=== PATIENT | female | born 1975 | race Caucasian/White ===

== ENCOUNTER 2017-09-30 16:08 | Emergency (ER) | payer BC ==
[~2017-09-30] VITALS: Ht 162.6 cm; Wt 54.0 kg
[~2017-09-30 16:08] MED LIST: ASPCH81; LRT5 PO; METH4PAK4 PO
[2017-09-30 16:18] VITALS: Ht 162.6 cm; Wt 54.0 kg
[2017-09-30] MEDS ORDERED: ACETAMINOPHEN 500 MG TAB PO STA (16:38)
[2017-09-30] MEDS ORDERED: KETOROLAC TROMETHAMINE 30 MG/ML VIAL IV STA (16:38)
[2017-09-30] MEDS ORDERED: SODIUM CHLORIDE 0.9% 1000ML 1,000 ML IV ONE (16:45)
--- NOTE | 2017-09-30 16:50 | EMERGENCY ROOM VISIT NOTE ---
History First contact with patient: 16:25 Chief Complaint: FLU LIKE SX Stated Complaint: FLU History of Present Illness The patient is a 41 year old female who presents to the Emergency Room with complaints of fever, severe headache, nausea and sensitivity to light that started suddenly this morning. The patient has a history of Myalgic encephalomyelitis/chronic fatigue syndrome. She said that this feels like 1 of her flares. These are usually brought on from an infection. She denies any other infectious symptoms such as cough, sore throat, sinus pressure, dysuria, hematuria, vomiting or diarrhea. She did not take her temperature. She is not taking anything for the pain. The patient was first seen at urgent care. She was sent here for further evaluation. The patient notes that she has had numerous CT scans and MRIs. All have come out normal. Review of Systems 10 system review performed and negative unless noted in HPI or below Past Medical/Surgical History Myalgic encephalomyelitis/chronic fatigue syndrome Gastroparesis Social History Smoking Status: Never Smoker Marital Status: Current/Historical Medications Scheduled Cholecalciferol (Vitamin D3), 1,000 UNITS PO QAM Multivitamin (Multivitamin), 1 TAB PO DAILY Ondasetron Odt (Zofran Odt), 4 MG SL Q6H Thyroid ([place] Thyroid), 60 MG PO QAM Tramadol Hcl (Ultram), 50 MG PO Q4H [Adrenal Supp.], 1 DOSE PO DIRECTED [Mitochondrial Supp.], 1 DOSE PO DIRECTED Physical Exam Vital Signs Date Time Temp Pulse Resp B/P (MAP) Pulse Ox O2 Delivery O2 Flow Rate FiO2 09/30/17 23:04 36.9 71 18 112/74 99 09/30/17 22:02 65 18 93/54 97 Room Air 09/30/17 20:32 37.3 67 18 112/65 97 Room Air 09/30/17 19:01 37.5 77 18 108/66 100 Room Air 09/30/17 17:42 78 24 102/56 98 Room Air 09/30/17 16:34 86 09/30/17 16:18 37.9 94 18 115/58 94 Room Air Physical Exam VITALS: Vitals are noted on the nurse's note and reviewed by myself. Vital signs stable. GENERAL: 41-year-old female, mildly acutely ill and weak in appearance, SKIN: The skin was without rashes, erythema, edema, or bruising. HEAD: Normocephalic atraumatic. EYES: Pupils equal round and reactive to light and accommodation. Conjunctivae without injection, sclerae without icterus. Extraocular movements intact. MOUTH: Mucous membranes moist. Tonsils are not enlarged. Pharynx without erythema or exudate. Uvula midline. Airway patent. Tongue does not deviate. NECK: Supple without nuchal rigidity. No lymphadenopathy. No JVD. HEART: Regular rate and rhythm without murmurs gallops or rubs. LUNGS: Clear to auscultation bilaterally without wheezes, rales or rhonchi. No accessory muscle use. ABDOMEN: Positive bowel sounds x 4.Soft, nontender, without organomegaly. No guarding or rebound tenderness. MUSCULOSKELETAL: No muscle atrophy, erythema, or edema noted. Overall weakness noted. No focal weakness noted. NEURO: Patient was alert and oriented to person place and time. Normal sensation to touch. No focal neurological deficits. Medical Decision & Procedures ER Provider Diagnostic Interpretation: CXR IMPRESSION: No acute process. The above report was generated using voice recognition software. It may contain grammatical, syntax or spelling errors. Electronically signed by: Mal Rivera M.D. 09/30/2017 5:14 PM Dictated Date/Time: 09/30/2017 5:13 PM The status of this report is Signed. Draft = Not yet reviewed or approved by Radiologist. Signed = Reviewed and approved by Radiologist. <AttendingPhy></AttendingPhy> <FamilyPhy>Elizabeth Juarez C.R.N.P.</FamilyPhy> <PrimaryPhy>Elizabeth Juarez C.R.N.P.</PrimaryPhy> <UnitNumber>[id number]</ UnitNumber> <VisitNumber Laboratory Results 09/30/17 17:00 Red Blood Count 4.18, Mean Corpuscular Volume 91.4, Mean Corpuscular Hemoglobin 31.1, Mean Corpuscular Hemoglobin Concent 34.0, Mean Platelet Volume 11.0, Neutrophils (%) (Auto) 82.0, Lymphocytes (%) (Auto) 10.6, Monocytes (%) (Auto) 6.4, Eosinophils (%) (Auto) 0.6, Basophils (%) (Auto) 0.3, Neutrophils # (Auto) 5.75, Lymphocytes # (Auto) 0.74, Monocytes # (Auto) 0.45, Eosinophils # (Auto) 0.04, Basophils # (Auto) 0.02 09/30/17 17:00 Test 09/30/17 17:00 09/30/17 17:42 09/30/17 20:44 White Blood Count 7.01 K/uL (4.8-10.8) Red Blood Count 4.18 M/uL (4.2-5.4) Hemoglobin 13.0 g/dL (12.0-16.0) Hematocrit 38.2 % (37-47) Mean Corpuscular Volume 91.4 fL (80-100) Mean Corpuscular Hemoglobin 31.1 pg (25-34) Mean Corpuscular Hemoglobin Concent 34.0 g/dl (32-36) Platelet Count 142 K/uL (130-400) Mean Platelet Volume 11.0 fL (7.4-10.4) Neutrophils (%) (Auto) 82.0 % Lymphocytes (%) (Auto) 10.6 % Monocytes (%) (Auto) 6.4 % Eosinophils (%) (Auto) 0.6 % Basophils (%) (Auto) 0.3 % Neutrophils # (Auto) 5.75 K/uL (1.4-6.5) Lymphocytes # (Auto) 0.74 K/uL (1.2-3.4) Monocytes # (Auto) 0.45 K/uL (0.11-0.59) Eosinophils # (Auto) 0.04 K/uL (0-0.5) Basophils # (Auto) 0.02 K/uL (0-0.2) RDW Standard Deviation 39.6 fL (36.4-46.3) RDW Coefficient of Variation 11.9 % (11.5-14.5) Immature Granulocyte % (Auto) 0.1 % Immature Granulocyte # (Auto) 0.01 K/uL (0.00-0.02) Anion Gap 11.0 mmol/L (3-11) Est Creatinine Clear Calc Drug Dose 82.8 ml/min Estimated GFR () 111.9 Estimated GFR (Non- 96.6 BUN/Creatinine Ratio 15.0 (10-20) Calcium Level 8.4 mg/dl (8.5-10.1) Total Bilirubin 0.6 mg/dl (0.2-1) Aspartate Amino Transf (AST/SGOT) 9 U/L (15-37) Alanine Aminotransferase (ALT/SGPT) 16 U/L (12-78) Alkaline Phosphatase 44 U/L (45-117) Total Protein 6.9 gm/dl (6.4-8.2) Albumin 3.6 gm/dl (3.4-5.0) Globulin 3.3 gm/dl (2.5-4.0) Albumin/Globulin Ratio 1.1 (0.9-2) Human Chorionic Gonadotropin, Qual NEG (NEG) Lyme Disease IgG Antibody NEG (NEG) Lyme Disease IgM Antibody NEG (NEG) Urine Color YELLOW Urine Appearance CLEAR (CLEAR) Urine pH 8.0 (4.5-7.5) Urine Specific [place] 1.008 (1.000-1.030) Urine Protein NEG (NEG) Urine Glucose (UA) NEG (NEG) Urine Ketones 2+ (NEG) Urine Occult Blood NEG (NEG) Urine Nitrite NEG (NEG) Urine Bilirubin NEG (NEG) Urine Urobilinogen NEG (NEG) Urine Leukocyte Esterase SMALL (NEG) Urine WBC (Auto) 1-5 /hpf (0-5) Urine RBC (Auto) 0-4 /hpf (0-4) Urine Hyaline Casts (Auto) 0 /lpf (0-5) Urine Epithelial Cells (Auto) 10-20 /lpf (0-5) Urine Bacteria (Auto) NEG (NEG) Influenza Type A (RT-PCR) Neg for Influ A (NEG) Influenza Type A Antigen Neg for Influ A (NEG) Influenza Type B Antigen Neg for Influ B (NEG) Influenza Type B (RT-PCR) Neg for Influ B (NEG) CSF Color COLORLESS CSF Appearance CLEAR CSF WBC 0 /uL (0-5) CSF RBC 0 /uL (0) CSF Xanthrochromic NO XANTHOCHROMIA CSF Cell Count Tube # 4 CSF Chemistry Tube # 2 CSF Glucose 57 mg/dl (40-70) CSF Total Protein 36.6 mg/dl (15.0-45.0) Medications Administered Medications (Trade) Dose Ordered Sig/Camila Route Start Time Stop Time Status Last Admin Dose Admin Sodium Chloride 1,000 ml @ 999 mls/hr Q1H1M ONCE IV 3/18/18 16:45 09/30/17 17:45 DC 09/30/17 17:37 999 MLS/HR Acetaminophen (Tylenol Tab) 1,000 mg NOW STAT PO 09/30/17 16:38 09/30/17 16:41 DC 09/30/17 17:37 1,000 MG Ketorolac Tromethamine (Toradol Inj) 30 mg NOW STAT IV 09/30/17 16:38 09/30/17 16:41 DC 09/30/17 17:37 30 MG Lidocaine HCl (Xylocaine 1% Inj (Local)) 20 ml STK-MED ONCE .ROUTE 09/30/17 19:34 09/30/17 19:35 DC 09/30/17 20:27 20 ML Fentanyl Citrate (Fentanyl Inj) 25 mcg NOW STAT IV 09/30/17 20:49 09/30/17 20:50 DC 09/30/17 20:55 25 MCG Ondansetron HCl (ZOFRAN ODT 4MG Home Pack) 1 homepack UD ONCE PO 09/30/17 22:45 09/30/17 22:46 DC 09/30/17 22:54 1 HOMEPACK Tramadol HCl (Ultram Home Pack) 1 homepack UD ONCE PO 09/30/17 22:45 09/30/17 22:46 DC 09/30/17 22:54 1 HOMEPACK ED Course Patient was seen and examined Vital signs including blood pressure were reviewed medications list was verified with patient Labs were obtained, and a saline lock was established The patient was medicated with Toradol 30 mg IV and Tylenol 1 g p.o. She was hydrated with 1 L of normal saline. The patient was reassessed by myself and my supervising physician. We discussed her workup. She voiced understanding, and she was in agreement with a lumbar puncture. This was performed by my supervising physician. Please see his note for details. The patient was reassessed and resting comfortably. We discussed her results and disposition options. She was comfortable being discharged home. I reviewed discharge instructions the patient. They voiced understanding and had no further questions. Medical Decision Differential diagnosis: Influenza, pneumonia, meningitis, EC/CFS flare, MS, myasthenia gravis, atypical migraine This patient is a 41-year-old female that presents to the emergency department with headache, fever and severe fatigue. She has a history of chronic fatigue syndrome. This typically flares up when she has an infection. On exam, she was significantly fatigued. She looked uncomfortable. Her workup reveals no leukocytosis. Chest x-ray is negative. Influenza is also negative. My supervising physician performed a lumbar puncture to rule out meningitis. No signs of meningitis on the CSF. This is likely a viral GI illness causing a flare of her EC/CFS. Disposition options were discussed at length with the patient and the patient's . They were comfortable being discharged home with close follow-up. I believe this is reasonable. She will follow-up with her primary care physician this week, and agrees to return with worsening symptoms. This chart was completed in part utilizing [employer] Speech Voice Recognition software. Attempts were made to minimize the grammatical errors, random word insertions, pronoun errors and incomplete sentences. Any formal questions or concerns about the content, text or information contained within the body of this dictation should be directly addressed to the provider for clarification. Medication Reconcilliation Current Medication List: was personally reviewed by me Blood Pressure Screening Patient's blood pressure: Normal blood pressure Impression Primary Impression: Viral syndrome Additional Impression: Weakness Departure Information Dispostion Home / Self-Care Condition FAIR Prescriptions Tramadol Hcl (ULTRAM) 50 Mg Tab 50 MG PO Q4H for Pain, #20 TAB PRN PAIN Prov: Amara Major PA-C 09/30/17 Ondasetron Odt (ZOFRAN ODT) 4 Mg Tab 4 MG SL Q6H for Nausea, #20 TAB Prov: Amara Major PA-C 09/30/17 Referrals Elizabeth Juarez, C.R.N.P. (PCP) Patient Instructions [facility] Additional Instructions You have been evaluated in the emergency department for headache, body aches, fever and weakness. This is likely a viral syndrome exacerbating your chronic illness Please try to increase your fluid intake over the next several days Please take Zofran 1 tab under the tongue every 6 hours as needed for nausea Please take tramadol 1 tab every 4 hours as needed for pain Follow-up with your primary care physician as soon as possible. Please call tomorrow morning for a follow-up appointment. Do not hesitate to return to the emergency department with a new, worsening or concerning symptoms; especially, chest pain, difficulty breathing, localized abdominal pain, persistent vomiting or worsening headache It was a pleasure participating in your care this evening Problem Qualifiers
--- NOTE | 2017-09-30 17:15 | DIAGNOSTIC IMAGING REPORT ---
CHEST ONE VIEW PORTABLE HISTORY: 41 years-old Female fever acute fever COMPARISON: CTA of the chest 05/24/2010 TECHNIQUE: Portable AP view of the chest FINDINGS: Cardiac mediastinal and hilar silhouettes are within normal limits. No pneumothorax, pleural effusion, focal airspace consolidation or overt pulmonary edema. The bones of the chest appear grossly intact. Sigmoidal scoliosis of the thoracolumbar spine redemonstrated. IMPRESSION: No acute process. The above report was generated using voice recognition software. It may contain grammatical, syntax or spelling errors. Electronically signed by: Mal Rivera M.D. 09/30/2017 5:14 PM Dictated Date/Time: 09/30/2017 5:13 PM
[2017-09-30 17:25] LABS: BASO % 0.3 %; BASO ABS # 0.02 K/uL (0-0.2); EOS % 0.6 %; EOS ABS # 0.04 K/uL (0-0.5); HEMATOCRIT 38.2 % (37-47); IG# 0.01 K/uL (0.00-0.02); LYMPH % 10.6 %; LYMPH ABS # 0.74 K/uL (1.2-3.4); MEAN CELL VOLUME 91.4 fL (80-100); MEAN CORPUSCULAR HEMOGLOBIN 31.1 pg (25-34); MONO % 6.4 %; MONO ABS # 0.45 K/uL (0.11-0.59); NEUT ABS # 5.75 K/uL (1.4-6.5); PLATELET COUNT 142 K/uL (130-400); RED CELL DISTRIBUTION WIDTH CV 11.9 % (11.5-14.5); RED CELL DISTRIBUTION WIDTH SD 39.6 fL (36.4-46.3); WHITE BLOOD COUNT 7.01 K/uL (4.8-10.8)
[2017-09-30 17:48] LABS: ALBUMIN 3.6 gm/dl (3.4-5.0); CALCIUM 8.4 mg/dl (8.5-10.1); CREATININE 0.77 mg/dl (0.60-1.20); POTASSIUM 3.4 mmol/L (3.5-5.1)
[2017-09-30 17:50] LABS: TOTAL PROTEIN 6.9 gm/dl (6.4-8.2)
[2017-09-30] MEDS ORDERED: [UNRECOGNIZED DRUG - OTHER] PO (17:51)
[2017-09-30] MEDS ORDERED: ADRENAL PO (17:51)
[2017-09-30] MEDS ORDERED: THY/30 PO (17:51)
[2017-09-30] MEDS ORDERED: MULT-506 PO (17:51)
[2017-09-30] MEDS ORDERED: CHOL1CAP57 PO (17:51)
[2017-09-30 18:30] LABS: INFLUENZA B ANTIGEN Neg for Influ B (NEG)
--- NOTE | 2017-09-30 19:15 | EMERGENCY ROOM VISIT NOTE ---
ED Visit Note First contact with patient: 16:25 The patient was seen and examined with Amara Major PA-C. I agree with the history, physical and findings. Please see the note for disposition and details. The patient had acute onset of symptoms on top of her chronic condition. She had a fever. Given the headache, fever, neck stiffness and flulike symptoms a sizable workup was performed. Her urinalysis and chest x- ray were unremarkable. CBC chemistry panel, and Lyme testing was negative. Rapid flu and PCR flu testing was negative. Because of the symptoms and concerns for possible meningitis the patient underwent lumbar puncture. This went quite easily and she was found to have unremarkable fluid. There is no elevation of her protein. No white cells or red cells noted. The patient was treated symptomatically. She has a nonfocal examination. She is answering questions appropriately. I discussed conservative management as there does not appear to be any indication for her to be admitted to the hospital. The patient and her feel comfortable with the plan. I did advise her that close follow-up will be necessary and I would like for her to see her primary clinic tomorrow. She feels comfortable with this plan and agrees to do so. If she worsens in any way she will be back. Seems to be most consistent with an influenza-like illness exacerbating her chronic fatigue and myalgias. 2038: I performed a Lumbar Puncture. Refer to the procedure note below for details. Lumbar Puncture Indication: Headache and fever Verbal consent was obtained after the risks and benefits were explained, including but not limited to headache, bleeding/clotting, scarring, infection, pain, and bone/joint/nerve damage. At this time, the risks of the procedure are less than the risks of NOT performing the procedure. A time out was taken and the correct patient and site identified. The patient was placed in the left lateral decubitus position and the back was prepped with betadine and draped in the standard fashion. The L3 intervertebral space was identified, anesthetized locally with 1% lidocaine without epinephrine, and the spinal needle was inserted through the skin with the bevel parallel to the dural fibers. The needle was carefully advanced into the lumbar cistern and 4 tubes of clear CSF was obtained. The stylet was replaced and the needle was removed. A bandaid was placed and the patient was placed in the supine position. The patient tolerated the procedure well and there were no complications.
[2017-09-30] MEDS ORDERED: LIDOCAINE HCL 1% 20 ML VIAL ONE (19:34)
[2017-09-30] MEDS ORDERED: FENTANYL CITRATE INJ 50 MCG/1 ML 2 ML VIAL IV STA (20:49)
[2017-09-30 21:16] LABS: CSF GLUCOSE 57 mg/dl (40-70); CSF TOTAL PROTEIN 36.6 mg/dl (15.0-45.0)
[2017-09-30 21:18] LABS: INFLUENZA A PCR Neg for Influ A (NEG); INFLUENZA B PCR Neg for Influ B (NEG)
[2017-09-30] MEDS ORDERED: ONDA4TAB10 SL (22:41)
[2017-09-30] MEDS ORDERED: TRAM-453 PO (22:41)
[2017-09-30] MEDS ORDERED: TRAMADOL HCL 50 MG HOME PACK PO ONE (22:45)
[2017-09-30] MEDS ORDERED: ONDANSETRON HOME PACK 4MG OD TAB PO ONE (22:45)
[2017-09-30 23:04] VITALS: BP 112/74; PULSE 71; TEMP 36.9; O2SAT 99
== END 2017-09-30 23:04 | disposition home or self-care (01) ==
LOC: C.EDB 16:10 → C.EDC 23:04
DX: B34.9 Viral infection, unspecified (principal); R53.1 Weakness; R53.82 Chronic fatigue, unspecified; K31.84 Gastroparesis; Z79.899 Other long term (current) drug therapy

== ENCOUNTER → 2017-10-09 | Outpatient (CLI) | payer BC ==
[~2017-10-09] MED LIST changes: +ADRENAL PO; -ASPCH81; +CHOL1CAP57 PO; -LRT5 PO; -METH4PAK4 PO; +MULT-506 PO; +ONDA4TAB10 SL; +THY/30 PO; +TRAM-453 PO; +[UNRECOGNIZED DRUG - OTHER] PO
== END | disposition home or self-care (01) ==
LOC: C.LAB1850 12:28
PROVIDERS: ATTEND Nurse Practitioner
DX: R53.81 Other malaise (principal); G89.29 Other chronic pain

== ENCOUNTER → 2017-10-17 | Outpatient (CLI) | payer BC ==
[~2017-10-17] MED LIST changes: +GADAVIST IV PRN; -TRAM-453 PO
--- NOTE | 2017-10-17 19:37 | DIAGNOSTIC IMAGING REPORT ---
MRI OF THE CERVICAL SPINE COMBO CLINICAL HISTORY: Neck pain. Difficulty ambulating. Generalized weakness. Nausea. COMPARISON STUDY: No priors. TECHNIQUE: MRI of the cervical spine is performed utilizing various T1 and T2-weighted sequences in the axial and sagittal planes. Contrast-enhanced sequences are acquired following the IV administration of 5 cc of Gadavist. FINDINGS: Cervical spine: Vertebral body height and alignment are maintained throughout the cervical spine. There is straightening of the cervical lordosis. Normal marrow signal intensity is preserved throughout the visualized bony structures. The atlantodental articulation appears maintained. The spinous processes are intact. No destructive bony lesion is identified. Intervertebral discs: Normal in height and signal intensity. Spinal cord: The cervical spinal cord is normal in morphology and signal intensity. No abnormal enhancement is identified on the postcontrast sequences. C2-C3: Unremarkable. C3-C4: Unremarkable. C4-C5: Unremarkable. C5-C6: A small posterior disc osteophyte complex minimally effaces the ventral subarachnoid space. The central canal and neural foramina are patent. C6-C7: Unremarkable. C7-T1: Unremarkable. Soft tissues: The prevertebral and paraspinous soft tissues are normal as visualized. An 8 mm nodule is noted in the right thyroid lobe. Additional left-sided nodules are identified. Brain parenchyma: The partially imaged brain parenchyma at the skull base is normal in appearance. IMPRESSION: 1. There is no disc herniation, central canal stenosis, or neural foraminal stenosis seen throughout the cervical spine. 2. The cervical spinal cord is normal in morphology and signal intensity. 3. There is an 8 mm nodule identified in the right lobe of the thyroid gland. Follow-up with a nonemergent thyroid ultrasound is recommended for further assessment. Dictated: 10/17/2017 6:58 PM Transcribed: 10/17/2017 7:37 PM [email or web address] Electronically signed by: Rory Reynolds M.D. 10/17/2017 7:43 PM Dictated Date/Time: 10/17/2017 6:58 PM
== END | disposition home or self-care (01) ==
LOC: C.MRI 17:36
PROVIDERS: ATTEND Nurse Practitioner Family
DX: R53.1 Weakness (principal); M79.1 Myalgia; H53.149 Visual discomfort, unspecified; E04.1 Nontoxic single thyroid nodule

== ENCOUNTER 2022-08-24 10:59 | Inpatient (IN) ==
[2022-08-24] MEDS ORDERED: dilTIAZem HCl 5 MG/ML 5 ML VIAL IV STA (11:38)
[2022-08-24] MEDS ORDERED: STAT IV Infusion **Titration per Protocol STA (11:38)
[2022-08-24] MEDS ORDERED: dilTIAZem HCL 125 MG in DEXTROSE 5% 100 ML IV SCH (11:45)
--- NOTE | 2022-08-24 11:47 | Emergency Department Note ---
Impression & Plan Atrial flutter with rapid ventricular response, Chest pain, Shortness of breath ED Provider Note NAME: VAN BO AGE: 46 SEX: F : 1975 ARRIVES VIA: Walk-In INFORMANT: Patient ED PROVIDER(S): Josep Carr DO CHIEF COMPLAINT: chest pain, shortness of breath and palpitations HPI: Patient is a 46-year-old female who presents to the ER for chest pain, palpitations, and shortness of breath. This all started around 10 AM. She has a history of A-fib. Denies any belly pain, nausea, vomiting, or diarrhea. She feels lightheaded and dizzy. No dysuria, urgency, or frequency. No other exacerbating or remitting factors. She has had this at least 5 times before in the past. She is following with [facility] from a neurological standpoint due to autonomic dysfunction. She is following with [facility] for her atrial flutter/A-fib. PAST MEDICAL HISTORY:See Below PAST SURGICAL HISTORY:See Below FAMILY HISTORY:See Below SOCIAL HISTORY:See Below HOME MEDICATIONS:See Below ALLERGIES:See Below VITALS:See Below PHYSICAL EXAMINATION: GENERAL: Sitting up in bed, alert, well appearing, well nourished, no distress, non-toxic EYE EXAM: normal conjunctiva. PERRL and EOM's grossly intact. OROPHARYNX: no exudate, no erythema, lips, buccal mucosa, and tongue normal and mucous membranes are moist NECK: supple, no nuchal rigidity, no adenopathy, non-tender LUNGS: Clear to auscultation. Normal chest wall mechanics HEART: Tachycardic, S1 normal and S2 normal ABDOMEN: abdomen soft, non-tender, normo-active bowel sounds, no masses, no rebound or guarding. BACK: Back is symmetrical on inspection and there is no deformity, no midline tenderness, no CVA tenderness. SKIN: no rashes and no bruising UPPER EXTREMITIES: upper extremities are grossly normal. LOWER EXTREMITIES: No pitting edema. NEURO EXAM: Normal sensorium, cranial nerves II-XII grossly intact, normal speech, no gross weakness of arms, no gross weakness of legs. MEDICAL DECISION MAKING: Patient is a 46-year-old female who presents ER for chest pain shortness of breath and palpitations. He does have a history of A-fib. IV established blood was obtained. Labs show no significant leukocytosis or anemia. BMP with LFTs bilirubin and TSH was unremarkable. Troponin was negative. COVID was negative. EKG consistent with atrial flutter with RVR with ST depressions. IV was established blood work was obtained. External records were reviewed. She was placed on Cardizem drip and given a Cardizem bolus. Heart rate trended down to the 70s. She remained in atrial flutter. Symptoms did improve. She was updated bedside. Discussed with the hospitalist admitted for further work-up to Dr. Ilya Feng. She remained on a Cardizem drip while in the ER. Triage Nursing notes reviewed. Limited review of prior medical records performed Vital Signs: reviewed and remarkable for tachy Differential diagnosis: Cardiac ischemia, aortic dissection, pulmonary embolism, pneumothorax, pneumonia, pericarditis, myocarditis, esophageal rupture, GERD, cholecystitis, pancreatitis, musculoskeletal, as well as other pathologies. ER treatment provided: See below Diagnostics interpreted by me include EKG and cardiac monitoring as listed below: -Cardiac Monitoring: An order was placed for continuous cardiac monitoring. The monitor shows a rate of 130 with atrial flutter with RVR. -ECG: Sinus rhythm rate of 138 Normal axis No PVCs ST depressions in the inferior leads as well as lateral leads QTc 460 -Laboratory studies:Interpreted by me as stated above in MDM and shown below. Imaging studies: Xrays: As interpreted by me: Portable AP upright 2 views of the chest show no focal trait or pneumothorax CTs show: none Consultation(s): Discussed with Dr. Ilya Feng in regards to presentation work-up and further management Procedures:none Critical Care: I have personally spent 35 minutes of critical care time in the direct management of this patient. This includes bedside care, interpretation of diagnostic studies, and testing, discussion with consultants, patient, and family members, and other required patient management activities. This 35 minutes is in excess of all separately billable procedures. Past Med/Surg History Medical History (Updated 08/24/22 @ 16:46 by Josep Carr DO) Atrial flutter Cervical facet syndrome Cervicalgia Chronic fatigue syndrome Chronic pain Fibroadenoma Fibromyalgia Hypothyroidism Tachycardia Surgical History H/O breast biopsy History of dental surgery Family History Grandmother (Maternal) Breast cancer Grandmother (Paternal) Breast cancer Other No pertinent family history in first degree relatives Denies family history of Ovarian cancer Colorectal cancer Uterine cancer Social History Smoking Status: Never smoker Hx Alcohol Use: Yes (wine a few times a year) Hx Substance Use: Yes (medical marijuana for sleep) Preferred Language: Tuvaluan Communication Ability: Effective Visual Impairment: No Limitations Avionics Test Technician Required: No Beliefs That Will Affect Care: Gnosticism marital status: Current Living Situation: Spouse and Family current occupational status: disabled Feels Safe at Home: Yes Assistive Devices: None Allergies Allergies Allergy/AdvReac Type Severity Reaction Status Date / Time Tetanus Vaccines and Toxoid Allergy Severe Migraine Unverified 07/31/19 13:02 and mouth numbness grass pollen Allergy Verified 12/14/20 12:57 grass pollen-perennial rye, Allergy Verified 12/14/20 12:57 standar codeine AdvReac Intermediate GI UPSET Verified 10/04/18 09:31 Home Meds Home Medications Medication Instructions Recorded Confirmed cholecalciferol (vitamin D3) 25 1,000 unit PO QAM 04/05/18 08/24/22 mcg (1,000 unit) tablet (Vitamin D3) ibuprofen 200 mg tablet 200 mg PO QID PRN Pain 04/05/18 08/24/22 multivitamin 1 tab PO QAM 04/05/18 08/24/22 metoprolol succinate 25 mg 12.5 mg PO QPM 07/31/19 08/24/22 tablet,extended release 24 hr (Toprol XL) fludrocortisone 0.1 mg tablet 0.1 mg PO DAILY 12/14/20 08/24/22 midodrine 2.5 mg tablet 2.5 mg PO BID 12/14/20 08/24/22 duloxetine 30 mg capsule,delayed 60 mg PO HS 03/18/22 08/24/22 release eszopiclone 3 mg tablet 3 mg PO HS PRN Sleep 03/18/22 08/24/22 levothyroxine 75 mcg tablet 75 mcg PO QAM 03/18/22 08/24/22 liothyronine 5 mcg tablet 5 mcg PO QAM 03/18/22 08/24/22 rizatriptan 5 mg disintegrating 5 mg PO DIRECTED PRN Migraine 03/18/22 08/24/22 tablet Headache Previous Rx's Medication Instructions Recorded lidocaine HCl 2 % mucosal solution 10 ml PO Q6H PRN mouth pain #100 mL 03/19/22 (Lidocaine Viscous) nirmatrelvir 300 mg (150 mg See Rx Instructions PO .COMPLEX 03/19/22 x2)-ritonavir 100 mg tablet,dose #30 tabs pack(EUA) (Paxlovid) Results & Data (ED) Vital Signs Vital Signs - 24 hr 08/24/22 11:11 08/24/22 12:00 08/24/22 12:23 Temperature 36.8 C Temperature Source Temporal Artery Scan Pulse Rate 132 H Pulse Rate [Right Finger] 77 Pulse Rate from SpO2 Sensor Pulse Rhythm Regular Irregular Pulse Rhythm [Right Finger] Irregular Respiratory Rate 16 18 Respiratory Effort / Characteristics Non-Labored Spontaneous Non-Labored Spontaneous Respiratory Depth Normal Normal Respiratory Pattern Regular Blood Pressure 133/83 Blood Pressure [Left Arm] 114/84 Blood Pressure Mean 99 Blood Pressure Mean [Left Arm] 94 Pulse Oximetry 97 100 95 Oxygen Delivery Method Room Air Room Air Room Air Sepsis Recent Fever Within 48 Hours No Sepsis New/Unexplained Change in Mental Status No Sepsis Action Taken by Nursing No Action Required 08/24/22 11:40 08/24/22 11:45 08/24/22 11:45 Temperature Temperature Source Pulse Rate 130 H 133 H Pulse Rate [Right Finger] Pulse Rate from SpO2 Sensor 109 H 129 H Pulse Rhythm Pulse Rhythm [Right Finger] Respiratory Rate 15 23 Respiratory Effort / Characteristics Respiratory Depth Respiratory Pattern Blood Pressure 130/87 Blood Pressure [Left Arm] Blood Pressure Mean 101 Blood Pressure Mean [Left Arm] Pulse Oximetry 100 100 Oxygen Delivery Method Sepsis Recent Fever Within 48 Hours Sepsis New/Unexplained Change in Mental Status Sepsis Action Taken by Nursing 08/24/22 11:50 08/24/22 12:00 08/24/22 12:00 Temperature Temperature Source Pulse Rate 116 H 82 Pulse Rate [Right Finger] Pulse Rate from SpO2 Sensor 110 H 81 Pulse Rhythm Pulse Rhythm [Right Finger] Respiratory Rate 20 17 Respiratory Effort / Characteristics Respiratory Depth Respiratory Pattern Blood Pressure 114/84 Blood Pressure [Left Arm] Blood Pressure Mean 94 Blood Pressure Mean [Left Arm] Pulse Oximetry 100 100 Oxygen Delivery Method Sepsis Recent Fever Within 48 Hours Sepsis New/Unexplained Change in Mental Status Sepsis Action Taken by Nursing 08/24/22 12:10 08/24/22 12:10 08/24/22 12:20 Temperature Temperature Source Pulse Rate 79 Pulse Rate [Right Finger] Pulse Rate from SpO2 Sensor 78 Pulse Rhythm Pulse Rhythm [Right Finger] Respiratory Rate 14 Respiratory Effort / Characteristics Respiratory Depth Respiratory Pattern Blood Pressure 106/79 115/66 Blood Pressure [Left Arm] Blood Pressure Mean 88 82 Blood Pressure Mean [Left Arm] Pulse Oximetry 99 Oxygen Delivery Method Sepsis Recent Fever Within 48 Hours Sepsis New/Unexplained Change in Mental Status Sepsis Action Taken by Nursing 08/24/22 12:20 08/24/22 12:30 08/24/22 12:30 Temperature Temperature Source Pulse Rate 78 87 Pulse Rate [Right Finger] Pulse Rate from SpO2 Sensor 83 87 Pulse Rhythm Pulse Rhythm [Right Finger] Respiratory Rate 18 20 Respiratory Effort / Characteristics Respiratory Depth Respiratory Pattern Blood Pressure 122/78 Blood Pressure [Left Arm] Blood Pressure Mean 92 Blood Pressure Mean [Left Arm] Pulse Oximetry 98 99 Oxygen Delivery Method Sepsis Recent Fever Within 48 Hours Sepsis New/Unexplained Change in Mental Status Sepsis Action Taken by Nursing 08/24/22 12:51 08/24/22 13:00 08/24/22 13:04 Temperature Temperature Source Pulse Rate 135 H 79 78 Pulse Rate [Right Finger] Pulse Rate from SpO2 Sensor 84 79 Pulse Rhythm Pulse Rhythm [Right Finger] Respiratory Rate 15 13 Respiratory Effort / Characteristics Respiratory Depth Respiratory Pattern Blood Pressure Blood Pressure [Left Arm] Blood Pressure Mean Blood Pressure Mean [Left Arm] Pulse Oximetry 98 99 Oxygen Delivery Method Sepsis Recent Fever Within 48 Hours Sepsis New/Unexplained Change in Mental Status Sepsis Action Taken by Nursing 08/24/22 13:04 08/24/22 13:10 08/24/22 13:11 Temperature Temperature Source Pulse Rate 78 78 Pulse Rate [Right Finger] Pulse Rate from SpO2 Sensor 78 78 Pulse Rhythm Pulse Rhythm [Right Finger] Respiratory Rate 17 16 Respiratory Effort / Characteristics Respiratory Depth Respiratory Pattern Blood Pressure 123/75 Blood Pressure [Left Arm] Blood Pressure Mean 91 Blood Pressure Mean [Left Arm] Pulse Oximetry 98 98 Oxygen Delivery Method Sepsis Recent Fever Within 48 Hours Sepsis New/Unexplained Change in Mental Status Sepsis Action Taken by Nursing 08/24/22 13:11 08/24/22 13:20 08/24/22 13:20 Temperature Temperature Source Pulse Rate 90 Pulse Rate [Right Finger] Pulse Rate from SpO2 Sensor 76 Pulse Rhythm Pulse Rhythm [Right Finger] Respiratory Rate 16 Respiratory Effort / Characteristics Respiratory Depth Respiratory Pattern Blood Pressure 118/71 Blood Pressure [Left Arm] Blood Pressure Mean 95 86 Blood Pressure Mean [Left Arm] Pulse Oximetry 97 Oxygen Delivery Method Sepsis Recent Fever Within 48 Hours Sepsis New/Unexplained Change in Mental Status Sepsis Action Taken by Nursing 08/24/22 13:30 08/24/22 13:31 08/24/22 13:31 Temperature Temperature Source Pulse Rate 108 H 129 H Pulse Rate [Right Finger] Pulse Rate from SpO2 Sensor 116 H 118 H Pulse Rhythm Pulse Rhythm [Right Finger] Respiratory Rate 21 20 Respiratory Effort / Characteristics Respiratory Depth Respiratory Pattern Blood Pressure 161/91 H Blood Pressure [Left Arm] Blood Pressure Mean 114 Blood Pressure Mean [Left Arm] Pulse Oximetry 96 91 Oxygen Delivery Method Sepsis Recent Fever Within 48 Hours Sepsis New/Unexplained Change in Mental Status Sepsis Action Taken by Nursing 08/24/22 13:40 08/24/22 13:40 08/24/22 13:50 Temperature Temperature Source Pulse Rate 105 H Pulse Rate [Right Finger] Pulse Rate from SpO2 Sensor 86 Pulse Rhythm Pulse Rhythm [Right Finger] Respiratory Rate 21 Respiratory Effort / Characteristics Respiratory Depth Respiratory Pattern Blood Pressure 138/99 136/89 Blood Pressure [Left Arm] Blood Pressure Mean 112 104 Blood Pressure Mean [Left Arm] Pulse Oximetry 97 Oxygen Delivery Method Sepsis Recent Fever Within 48 Hours Sepsis New/Unexplained Change in Mental Status Sepsis Action Taken by Nursing 08/24/22 13:50 08/24/22 14:00 08/24/22 14:01 Temperature Temperature Source Pulse Rate 136 H 85 Pulse Rate [Right Finger] Pulse Rate from SpO2 Sensor 119 H 78 Pulse Rhythm Pulse Rhythm [Right Finger] Respiratory Rate 17 19 Respiratory Effort / Characteristics Respiratory Depth Respiratory Pattern Blood Pressure 114/80 Blood Pressure [Left Arm] Blood Pressure Mean 91 Blood Pressure Mean [Left Arm] Pulse Oximetry 99 96 Oxygen Delivery Method Sepsis Recent Fever Within 48 Hours Sepsis New/Unexplained Change in Mental Status Sepsis Action Taken by Nursing 08/24/22 14:01 08/24/22 14:10 08/24/22 14:20 Temperature Temperature Source Pulse Rate 87 80 134 H Pulse Rate [Right Finger] Pulse Rate from SpO2 Sensor 85 80 75 Pulse Rhythm Pulse Rhythm [Right Finger] Respiratory Rate 19 19 20 Respiratory Effort / Characteristics Respiratory Depth Respiratory Pattern Blood Pressure Blood Pressure [Left Arm] Blood Pressure Mean Blood Pressure Mean [Left Arm] Pulse Oximetry 98 99 89 L Oxygen Delivery Method Sepsis Recent Fever Within 48 Hours Sepsis New/Unexplained Change in Mental Status Sepsis Action Taken by Nursing 08/24/22 14:28 08/24/22 14:28 08/24/22 14:30 Temperature Temperature Source Pulse Rate 77 Pulse Rate [Right Finger] Pulse Rate from SpO2 Sensor 78 Pulse Rhythm Pulse Rhythm [Right Finger] Respiratory Rate 13 Respiratory Effort / Characteristics Respiratory Depth Respiratory Pattern Blood Pressure 116/81 110/80 Blood Pressure [Left Arm] Blood Pressure Mean 92 90 Blood Pressure Mean [Left Arm] Pulse Oximetry 98 Oxygen Delivery Method Sepsis Recent Fever Within 48 Hours Sepsis New/Unexplained Change in Mental Status Sepsis Action Taken by Nursing 08/24/22 14:30 08/24/22 14:40 08/24/22 14:40 Temperature Temperature Source Pulse Rate 78 78 Pulse Rate [Right Finger] Pulse Rate from SpO2 Sensor 78 78 Pulse Rhythm Pulse Rhythm [Right Finger] Respiratory Rate 9 L 16 Respiratory Effort / Characteristics Respiratory Depth Respiratory Pattern Blood Pressure 121/78 Blood Pressure [Left Arm] Blood Pressure Mean 92 Blood Pressure Mean [Left Arm] Pulse Oximetry 97 98 Oxygen Delivery Method Sepsis Recent Fever Within 48 Hours Sepsis New/Unexplained Change in Mental Status Sepsis Action Taken by Nursing 08/24/22 14:50 08/24/22 14:50 08/24/22 15:00 Temperature Temperature Source Pulse Rate 77 72 Pulse Rate [Right Finger] Pulse Rate from SpO2 Sensor 78 71 Pulse Rhythm Pulse Rhythm [Right Finger] Respiratory Rate 14 14 Respiratory Effort / Characteristics Respiratory Depth Respiratory Pattern Blood Pressure 118/76 Blood Pressure [Left Arm] Blood Pressure Mean 90 Blood Pressure Mean [Left Arm] Pulse Oximetry 98 98 Oxygen Delivery Method Sepsis Recent Fever Within 48 Hours Sepsis New/Unexplained Change in Mental Status Sepsis Action Taken by Nursing 08/24/22 15:01 08/24/22 15:01 08/24/22 15:10 Temperature Temperature Source Pulse Rate 65 76 Pulse Rate [Right Finger] Pulse Rate from SpO2 Sensor 70 77 Pulse Rhythm Pulse Rhythm [Right Finger] Respiratory Rate 13 16 Respiratory Effort / Characteristics Respiratory Depth Respiratory Pattern Blood Pressure 114/52 L Blood Pressure [Left Arm] Blood Pressure Mean 72 Blood Pressure Mean [Left Arm] Pulse Oximetry 98 99 Oxygen Delivery Method Sepsis Recent Fever Within 48 Hours Sepsis New/Unexplained Change in Mental Status Sepsis Action Taken by Nursing 08/24/22 15:11 08/24/22 15:11 08/24/22 15:20 Temperature Temperature Source Pulse Rate 78 Pulse Rate [Right Finger] Pulse Rate from SpO2 Sensor 79 Pulse Rhythm Pulse Rhythm [Right Finger] Respiratory Rate 23 Respiratory Effort / Characteristics Respiratory Depth Respiratory Pattern Blood Pressure 121/80 101/58 L Blood Pressure [Left Arm] Blood Pressure Mean 93 72 Blood Pressure Mean [Left Arm] Pulse Oximetry 99 Oxygen Delivery Method Sepsis Recent Fever Within 48 Hours Sepsis New/Unexplained Change in Mental Status Sepsis Action Taken by Nursing 08/24/22 15:20 08/24/22 15:30 08/24/22 15:30 Temperature Temperature Source Pulse Rate 77 78 Pulse Rate [Right Finger] Pulse Rate from SpO2 Sensor 77 78 Pulse Rhythm Pulse Rhythm [Right Finger] Respiratory Rate 22 18 Respiratory Effort / Characteristics Respiratory Depth Respiratory Pattern Blood Pressure 124/81 Blood Pressure [Left Arm] Blood Pressure Mean 95 Blood Pressure Mean [Left Arm] Pulse Oximetry 98 100 Oxygen Delivery Method Sepsis Recent Fever Within 48 Hours Sepsis New/Unexplained Change in Mental Status Sepsis Action Taken by Nursing 08/24/22 15:40 08/24/22 15:40 Temperature Temperature Source Pulse Rate 79 Pulse Rate [Right Finger] Pulse Rate from SpO2 Sensor 74 Pulse Rhythm Pulse Rhythm [Right Finger] Respiratory Rate 18 Respiratory Effort / Characteristics Respiratory Depth Respiratory Pattern Blood Pressure 112/76 Blood Pressure [Left Arm] Blood Pressure Mean 88 Blood Pressure Mean [Left Arm] Pulse Oximetry 99 Oxygen Delivery Method Sepsis Recent Fever Within 48 Hours Sepsis New/Unexplained Change in Mental Status Sepsis Action Taken by Nursing Laboratory Data 08/24/22 11:20 08/24/22 11:20 Lab Results 08/24/22 08/24/22 08/24/22 Range/Units 11:20 11:20 11:20 WBC 6.29 (4.8-10.8) K/ul RBC 4.87 (4.20-5.40) M/uL Hgb 14.8 (12.0-16.0) g/dl Hct 43.1 (37.0-47.0) % MCV 88.5 (80.0-100.0) fL MCH 30.4 (25.0-34.0) pg MCHC 34.3 (32.0-36.0) g/dL RDW Std Deviation 39.6 (36.4-46.3) fL RDW Coeff of Farhana 12.2 (11.5-14.5) % Plt Count 226 (130-400) K/uL MPV 11.1 (9.4-12.4) fL Immature Gran % (Auto) 0.2 % Neut % (Auto) 58.2 % Lymph % (Auto) 32.1 % Tate % (Auto) 6.0 % Eos % (Auto) 2.9 % Baso % (Auto) 0.6 % Neut # (Auto) 3.66 (1.40-6.50) K/uL Lymph # (Auto) 2.02 (1.2-3.4) K/uL Tate # (Auto) 0.38 (0.11-0.59) K/uL Eos # (Auto) 0.18 (0-0.50) K/uL Baso # (Auto) 0.04 (0-0.2) K/uL Immature Gran # (Auto) 0.01 (0.01-0.20) K/uL PT 10.4 (9.0-12.0) Seconds INR 1.0 (0.9-1.1) APTT 28.2 (21.0-31.0) Seconds PTT Ratio 1.0 Sodium 137 (136-145) mmol/L Potassium 3.7 (3.5-5.1) mmol/L Chloride 104 (98-107) mmol/L Carbon Dioxide 25 (21-32) mmol/L Anion Gap 8 (3-11) BUN 12 (6-23) mg/dl Creatinine 0.84 (0.6-1.2) mg/dl Est Cr Clr Drug Dosing Not Reportable Est GFR ( Amer) 97.3 ml/min Est GFR (Non-Af Amer) 83.9 ml/min BUN/Creatinine Ratio 14.3 (10-20) Glucose 92 (70-99(Fasting)) mg/dl Calcium 9.5 (8.5-10.1) mg/dl Magnesium 2.2 (1.7-2.4) mg/dl Total Bilirubin 0.8 (0.2-1.0) mg/dl AST 15 (13-39) U/L ALT 11 (7-52) U/L Alkaline Phosphatase 56 (34-104) U/L Troponin I High Sens < 2.3 (0-14) pg/ml Total Protein 8.3 (6.0-8.3) gm/dl Albumin 4.8 (3.4-5.0) gm/dl Globulin 3.5 (2.5-4.0) gm/dl Albumin/Globulin Ratio 1.4 (0.9-2) TSH (0.300-4.500) uIu/ml SARS-CoV-2, RNA, NAAT (NEGATIVE) 08/24/22 08/24/22 Range/Units 11:20 14:15 WBC (4.8-10.8) K/ul RBC (4.20-5.40) M/uL Hgb (12.0-16.0) g/dl Hct (37.0-47.0) % MCV (80.0-100.0) fL MCH (25.0-34.0) pg MCHC (32.0-36.0) g/dL RDW Std Deviation (36.4-46.3) fL RDW Coeff of Farhana (11.5-14.5) % Plt Count (130-400) K/uL MPV (9.4-12.4) fL Immature Gran % (Auto) % Neut % (Auto) % Lymph % (Auto) % Tate % (Auto) % Eos % (Auto) % Baso % (Auto) % Neut # (Auto) (1.40-6.50) K/uL Lymph # (Auto) (1.2-3.4) K/uL Tate # (Auto) (0.11-0.59) K/uL Eos # (Auto) (0-0.50) K/uL Baso # (Auto) (0-0.2) K/uL Immature Gran # (Auto) (0.01-0.20) K/uL PT (9.0-12.0) Seconds INR (0.9-1.1) APTT (21.0-31.0) Seconds PTT Ratio Sodium (136-145) mmol/L Potassium (3.5-5.1) mmol/L Chloride (98-107) mmol/L Carbon Dioxide (21-32) mmol/L Anion Gap (3-11) BUN (6-23) mg/dl Creatinine (0.6-1.2) mg/dl Est Cr Clr Drug Dosing Est GFR ( Amer) ml/min Est GFR (Non-Af Amer) ml/min BUN/Creatinine Ratio (10-20) Glucose (70-99(Fasting)) mg/dl Calcium (8.5-10.1) mg/dl Magnesium (1.7-2.4) mg/dl Total Bilirubin (0.2-1.0) mg/dl AST (13-39) U/L ALT (7-52) U/L Alkaline Phosphatase (34-104) U/L Troponin I High Sens (0-14) pg/ml Total Protein (6.0-8.3) gm/dl Albumin (3.4-5.0) gm/dl Globulin (2.5-4.0) gm/dl Albumin/Globulin Ratio (0.9-2) TSH 1.086 (0.300-4.500) uIu/ml SARS-CoV-2, RNA, NAAT NEGATIVE (NEGATIVE) Administered Medications Diltiazem HCl 125 mg/ Dextrose 125 mls @ 5 mls/hr IV .Q24H ZEKE; Protocol Stop: 09/23/22 11:44 Last Admin: 08/24/22 12:05 Dose: 5 mg/hr, 5 mls/hr Documented By: FRANDY Co-signed By: CLIVE Discontinued Medications Diltiazem HCl (Diltiazem Hcl 5 Mg/Ml 5 Ml Vial) 10 mg IV NOW STA Stop: 08/24/22 11:39 Last Admin: 08/24/22 11:46 Dose: 10 mg Documented By: FRANDY Co-signed By: CLIVE Potassium Chloride (K Vladimir / Wtr) 10 meq in 100 mls @ 100 mls/hr IV Q1H ZEKE; Protocol Stop: 08/24/22 16:29 Last Admin: 08/24/22 15:39 Dose: 100 mls/hr Documented By: Infusion: 08/24/22 15:39 Dose: 100 mls/hr Documented By: Admin: 08/24/22 14:42 Dose: 100 mls/hr Documented By: FRANDY Sodium Chloride (Nss 1000ml) 1,000 mls @ 999 mls/hr IV .Q1H1M ONE Stop: 08/24/22 15:40 Last Admin: 08/24/22 15:27 Dose: 999 mls/hr Documented By: FRANDY Miscellaneous (Stat Iv Infusion Titration Per Protocol) 1 each N/A NOW STA Stop: 08/24/22 11:39 Last Admin: 08/24/22 12:27 Dose: Not Given Documented By: GGG Imaging Data Radiologist's Impression: Chest X-Ray 08/24/22 11:14 XR chest 2V PA/lateral HISTORY: Shortness of breath. Chest pain, nonspecific COMPARISON: Chest 03/18/2022. FINDINGS: No pneumothorax. No pleural effusions. The lungs are clear. The heart is normal in size. Scoliosis again noted. IMPRESSION: No significant change compared to the prior study. No acute process. ACT 112: Negative or not required by law. Electronically signed by: Davidson El M.D. 08/24/2022 1:00 PM Discharge Plan Visit Data Chief Complaint: Arrhythmia/Palpitations Stated Complaint: HEART ARRHYTHMIA ED Provider: Josep Carr Discharge Problem: Atrial flutter with rapid ventricular response, Chest pain, Shortness of breath Forms Stand Alone Forms: My [facility] [employer] Prescriptions Prescriptions: No Action fludrocortisone 0.1 mg tablet 0.1 mg PO DAILY midodrine 2.5 mg tablet 2.5 mg PO BID Rx Instructions: do not give last dose of day after 6PM or within 4 hrs of bedtime multivitamin Tablet 1 tab PO QAM ibuprofen 200 mg Tablet 200 mg PO QID PRN (Reason: Pain) cholecalciferol (vitamin D3) [Vitamin D3] 1,000 unit Tablet 1,000 unit PO QAM metoprolol succinate [Toprol XL] 25 mg tablet extended release 24 hr 12.5 mg PO QPM liothyronine 5 mcg tablet 5 mcg PO QAM Rx Instructions: TAKES WITH LEVOTHYROXINE 75 MCG. levothyroxine 75 mcg tablet 75 mcg PO QAM Rx Instructions: TAKES WITH 5 MG LIOTHYRONINE. rizatriptan 5 mg tablet,disintegrating 5 mg PO DIRECTED PRN (Reason: Migraine Headache) duloxetine 30 mg capsule,delayed release(DR/EC) 60 mg PO HS eszopiclone 3 mg tablet 3 mg PO HS PRN (Reason: Sleep) Paxlovid (EUA) 300 mg (150 mg x 2)-100 mg tablets,dose pack See Rx Instructions PO .COMPLEX Qty: 30 0RF Rx Instructions: take TWO 150 mg tablets of nirmatrelvir with ONE 100 mg tablet of ritonavir twice daily for 5 days lidocaine HCl [Lidocaine Viscous] 2 % solution 10 ml PO Q6H PRN (Reason: mouth pain) Qty: 100 0RF Referrals Referrals: Catalino Arroyo MD [Physician] -
[2022-08-24 12:27] LABS: Basophils # (auto) 0.04 K/uL (0-0.2); Basophils % (auto) 0.6 %; Eosinophils # (auto) 0.18 K/uL (0-0.50); Eosinophils % (auto) 2.9 %; Hematocrit (blood only) 43.1 % (37.0-47.0); Hemoglobin 14.8 g/dl (12.0-16.0); Immature Granulocytes # (auto) 0.01 K/uL (0.01-0.20); Immature Granulocytes % (auto) 0.2 %; Lymphocytes # (auto) 2.02 K/uL (1.2-3.4); Lymphocytes % (auto) 32.1 %; Mean Corpuscular Hemoglobin 30.4 pg (25.0-34.0); Mean Corpuscular Hgb Conc 34.3 g/dL (32.0-36.0); Mean Corpuscular Volume 88.5 fL (80.0-100.0); Mean Platelet Volume 11.1 fL (9.4-12.4); Monocytes # (auto) 0.38 K/uL (0.11-0.59); Neutrophils # (auto) 3.66 K/uL (1.40-6.50); Neutrophils % (auto) 58.2 %; Platelet Count 226 K/uL (130-400); RDW Coefficient of Variation 12.2 % (11.5-14.5); RDW Standard Deviation 39.6 fL (36.4-46.3); Red Blood Count 4.87 M/uL (4.20-5.40); White Blood Count 6.29 K/ul (4.8-10.8)
[2022-08-24 12:41] LABS: Alanine Aminotransferase 11 U/L (7-52); Albumin Globulin Ratio 1.4 (0.9-2); Albumin Level 4.8 gm/dl (3.4-5.0); Alkaline Phosphatase 56 U/L (34-104); Anion Gap 8 (3-11); Aspartate Aminotransferase 15 U/L (13-39); BUN Creatinine Ratio 14.3 (10-20); Bilirubin,Total 0.8 mg/dl (0.2-1.0); Blood Urea Nitrogen 12 mg/dl (6-23); Calcium 9.5 mg/dl (8.5-10.1); Carbon Dioxide 25 mmol/L (21-32); Chloride 104 mmol/L (98-107); Est GFR (African American) 97.3 ml/min; Est GFR (Non-African American) 83.9 ml/min; Globulin 3.5 gm/dl (2.5-4.0); Glucose 92 mg/dl (70-99(Fasting)); Potassium 3.7 mmol/L (3.5-5.1); Sodium 137 mmol/L (136-145); Total Protein 8.3 gm/dl (6.0-8.3)
[2022-08-24 12:47] LABS: Troponin I High Sensitivity < 2.3 pg/ml (0-14)
--- NOTE | 2022-08-24 12:51 | Electrocardiogram Report ---
Test Reason : Blood Pressure : / mmHG Vent. Rate : 138 BPM Atrial Rate : 293 BPM P-R Int : 000 ms QRS Dur : 076 ms QT Int : 304 ms P-R-T Axes : 266 077 -51 degrees QTc Int : 460 ms Atrial flutter with variable A-V block Nonspecific ST and T wave abnormality Abnormal ECG When compared with ECG of 18-MAR-2022 23:04, Atrial flutter has replaced Sinus rhythm Vent. rate has increased BY 78 BPM Confirmed by Tommy Torres ([id number]) on 08/24/2022 12:51:25 PM Referred By: Confirmed By:Tommy Torres
--- NOTE | 2022-08-24 13:01 | XRay Report ---
XR chest 2V PA/lateral HISTORY: Shortness of breath. Chest pain, nonspecific COMPARISON: Chest 03/18/2022. FINDINGS: No pneumothorax. No pleural effusions. The lungs are clear. The heart is normal in size. Sc oliosis again noted. IMPRESSION: No significant change compared to the prior study. No acute process. ACT 112: Negative or not required by law. Electronically signed by: Davidson El M.D. 08/24/2022 1:00 PM
[2022-08-24 13:03] LABS: Partial Thromboplastin Time 28.2 Seconds (21.0-31.0); Prothrombin Time 10.4 Seconds (9.0-12.0)
--- NOTE | 2022-08-24 13:23 | History & Physical Report ---
Date of Service August 24, 2022 Assessment & Plan (1) Atrial flutter: Plan: -Admit to the PCU -The patient is currently afebrile, hemodynamically stable, and stable on RA -Her HR is currently controlled on the diltiazem drip but she is still in flutter -Very complex cardiac history, follows with Dr. Abdalla, has instances of atrial flutter, POTS, and symptomatic bradycardic -Cardiology consult placed, spoke with both Dr. Abdalla and Dr. Torres who is on consults for cardiology today, appreciat their help >Patient will likely need cardioversion in the next 24 hours, followed by anticoagulation and eventually flutter ablation >Will Keep NPO for now >Will keep her on the Diltiazem drip until she is evaluated by Dr. Torres -TSH ordered on admission is in process -Monitor on tele and pulse oximetry -Spoke to patient and her regarding strict bedrest for now to avoid syncope with her history of POTS and current dilt drip, they are in agreement -Potassium is currently 3.7, will give 2 doses of 10 meq IV KCL now and will obtain mag level -BL SCDs for DVT PPX for now -AM CBC, BMP, MAG, PT/INR (2) Hypothyroidism: Plan: -TSH is in process -Continue levothyroxine and liothyronine (3) Chronic pain: Plan: -Will start with tylenol and can increase regimen as needed Plan The patient was discussed with Dr. Feng at the time of the admission History of Present Illness Chief Complaint: Arrhythmia/palpitations Primary Care Provider: Eduar Monzon MD Cindy is a 46 year old female with a PMH of Paroxysmal atrial flutter, hypothyroidism, and fibromyalgia who presented to the [facility] ED on 08/24/22 with a chief complaint of palpitations/chest pain. In the ED the patient was found to be afebrile, hemodynamically stable, stable on RA but in atrial flutter with HR in the 130's-140's. Labs including CBC, CMP, and high sensitivity troponin were WNL. Chest xray was read as "No significant change compared to the prior study. No acute process.". The patient was given 10 mg IV diltiazem and then was placed on a diltiazem drip. Her rate was subsequently controlled but she was noted to still be in flutter on telemetry. At the time of the exam the patient was resting comfortably in bed in no acute distress with her sitting bedside, history was obtained from both. They state that the patient has a long history of cardiac issues. She was last admitted to [facility] in 2018 when she went into atrial flutter. She spontaneously converted back to NSR during that admission and her Carvedilol was switched to Metoprolol succinate 12.5 mg PO HS and prn. She confirms that she is still taking her metoprolol as prescribed. She states that she has had ongoing issues with POTS/orthostatic hypotension and also with symptomatic bradycardia at times. Due to her complex issues Dr. Abdalla had her seen by an Autonomic specialist at the [facility] approximately 3 weeks ago. They state that the specialist there had her hold her midodrine and fludrocortisone and has been having her drink a gallon of water daily with increased sodium intake. They have been having her try to exercise with this new regimen to see how she would respond. She states that she tried some water exercises yesterday. This am when she woke and jeferson out of bed she developed heart palpitations, lightheadedness, and chest discomfort. She took a dose of her 12.5 mg PO metoprolol but it did not resolve her symptoms. Currently lying in bed the patient's HR is controlled in the 70's-90's but she is still in flutter. She states that she is still having some chest discomfort, but it is significantly improved compared to this am. She had covid last March, and was successfully treated with Paxlovid. she states that for two months after her infection she seemed to have more consistent issues with her HR and symptomatic orthostatic hypotension. She denies recent fevers, chills, headache, changes in vision, hearing, taste, and smell, cough, abd pain, nausea ,vomiting, diarrhea, dysuria, hematuria, and recent falls. Please refer to Dr. Martino's attestation for an changes to the treatment plan Allergies Allergy/AdvReac Type Severity Reaction Status Date / Time Tetanus Vaccines and Toxoid Allergy Severe Migraine Unverified 07/31/19 13:02 and mouth numbness grass pollen Allergy Verified 12/14/20 12:57 grass pollen-perennial rye, Allergy Verified 12/14/20 12:57 standar codeine AdvReac Intermediate GI UPSET Verified 10/04/18 09:31 Home Medications Medication Instructions Recorded Confirmed Type cholecalciferol (vitamin D3) 25 1,000 unit PO QAM 04/05/18 08/24/22 History mcg (1,000 unit) tablet (Vitamin D3) ibuprofen 200 mg tablet 200 mg PO QID PRN Pain 04/05/18 08/24/22 History multivitamin 1 tab PO QAM 04/05/18 08/24/22 History metoprolol succinate 25 mg 12.5 mg PO QPM 07/31/19 08/24/22 History tablet,extended release 24 hr (Toprol XL) fludrocortisone 0.1 mg tablet 0.1 mg PO DAILY 12/14/20 08/24/22 History midodrine 2.5 mg tablet 2.5 mg PO BID 12/14/20 08/24/22 History duloxetine 30 mg capsule,delayed 60 mg PO HS 03/18/22 08/24/22 History release eszopiclone 3 mg tablet 3 mg PO HS PRN Sleep 03/18/22 08/24/22 History levothyroxine 75 mcg tablet 75 mcg PO QAM 03/18/22 08/24/22 History liothyronine 5 mcg tablet 5 mcg PO QAM 03/18/22 08/24/22 History rizatriptan 5 mg disintegrating 5 mg PO DIRECTED PRN Migraine 03/18/22 08/24/22 History tablet Headache lidocaine HCl 2 % mucosal solution 10 ml PO Q6H PRN mouth pain #100 mL 03/19/22 08/24/22 Rx (Lidocaine Viscous) nirmatrelvir 300 mg (150 mg See Rx Instructions PO .COMPLEX 03/19/22 08/24/22 Rx x2)-ritonavir 100 mg tablet,dose #30 tabs pack(EUA) (Paxlovid) Past Med/Surg History Medical History (Updated 08/24/22 @ 14:13 by Rafi Kurtz PA-C) Atrial flutter Cervical facet syndrome Cervicalgia Chronic fatigue syndrome Chronic pain Fibroadenoma Fibromyalgia Hypothyroidism Tachycardia Surgical History H/O breast biopsy History of dental surgery Family History Grandmother (Maternal) Breast cancer Grandmother (Paternal) Breast cancer Other No pertinent family history in first degree relatives Denies family history of Ovarian cancer Colorectal cancer Uterine cancer Social History Smoking Status: Never smoker Hx Alcohol Use: Yes (wine a few times a year) Hx Substance Use: Yes (medical marijuana for sleep) Preferred Language: Citizen Of [place] Communication Ability: Effective Visual Impairment: No Limitations 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 All systems have been reviewed and are otherwise negative. Physical Exam Physical Exam: Physical Exam: General: In no acute distress, stated age, well-nourished, good hygiene HEENT: Normocephalic, atraumatic, no scleral icterus, pupils around round, symmetrical, and reactive to light, moist mucus membranes, trachea midline, no thyromegaly Chest/Pulm: No respiratory distress, symmetrical chest expansion, clear breath sounds throughout Cardiac: irregular rate and rhythm, no murmurs noted Abdomen: Negative for ascites and bruising, normoactive bowel sounds, soft, non-tender to palpation throughout Musculoskeletal: Symmetrical and without signs of acute trauma, upper and lower extremities with full ROM, no atrophy, spasticity, or flaccidity Extremities: Radial, dorsalis pedis, and posterior tibial pulses are intact and symmetrical, no edema noted in the BL LE's Skin: Warm, dry, no rashes , lesions, or scars noted Neuro: Alert and oriented to person, place, month, year, and president, no focal defects, CN II-XII tested and intact, no tremors noted Psych: No acute distress, calm and cooperative during the exam Results & Data Results & Data ([facility]) Vital Signs (Past 12 Hours) Vital Signs Temp Pulse Pulse Resp BP BP Pulse Ox 08/24/22 12:20 78 18 98 08/24/22 12:20 115/66 08/24/22 12:10 79 14 99 08/24/22 12:10 106/79 08/24/22 12:00 82 17 100 08/24/22 12:00 114/84 08/24/22 11:50 116 H 20 100 08/24/22 11:45 130/87 08/24/22 11:45 133 H 23 100 08/24/22 11:40 130 H 15 100 08/24/22 12:23 95 08/24/22 12:00 77 18 114/84 100 08/24/22 11:11 36.8 C 132 H 16 133/83 97 O2 Del Method 08/24/22 12:20 08/24/22 12:20 08/24/22 12:10 08/24/22 12:10 08/24/22 12:00 08/24/22 12:00 08/24/22 11:50 08/24/22 11:45 08/24/22 11:45 08/24/22 11:40 08/24/22 12:23 Room Air 08/24/22 12:00 Room Air 08/24/22 11:11 Room Air Laboratory Results Laboratory Results - last 24 hr 08/24/22 08/24/22 08/24/22 11:20 11:20 11:20 WBC 6.29 RBC 4.87 Hgb 14.8 Hct 43.1 MCV 88.5 MCH 30.4 MCHC 34.3 RDW Std Deviation 39.6 RDW Coeff of Farhana 12.2 Plt Count 226 MPV 11.1 Immature Gran % (Auto) 0.2 Neut % (Auto) 58.2 Lymph % (Auto) 32.1 Scurry % (Auto) 6.0 Eos % (Auto) 2.9 Baso % (Auto) 0.6 Neut # (Auto) 3.66 Lymph # (Auto) 2.02 Scurry # (Auto) 0.38 Eos # (Auto) 0.18 Baso # (Auto) 0.04 Immature Gran # (Auto) 0.01 PT 10.4 INR 1.0 APTT 28.2 PTT Ratio 1.0 Sodium 137 Potassium 3.7 Chloride 104 Carbon Dioxide 25 Anion Gap 8 BUN 12 Creatinine 0.84 Est Cr Clr Drug Dosing Not Reportable Est GFR ( Amer) 97.3 Est GFR (Non-Af Amer) 83.9 BUN/Creatinine Ratio 14.3 Glucose 92 Calcium 9.5 Total Bilirubin 0.8 AST 15 ALT 11 Alkaline Phosphatase 56 Troponin I High Sens < 2.3 Total Protein 8.3 Albumin 4.8 Globulin 3.5 Albumin/Globulin Ratio 1.4 TSH 08/24/22 11:20 WBC RBC Hgb Hct MCV MCH MCHC RDW Std Deviation RDW Coeff of Farhana Plt Count MPV Immature Gran % (Auto) Neut % (Auto) Lymph % (Auto) Scurry % (Auto) Eos % (Auto) Baso % (Auto) Neut # (Auto) Lymph # (Auto) Scurry # (Auto) Eos # (Auto) Baso # (Auto) Immature Gran # (Auto) PT INR APTT PTT Ratio Sodium Potassium Chloride Carbon Dioxide Anion Gap BUN Creatinine Est Cr Clr Drug Dosing Est GFR ( Amer) Est GFR (Non-Af Amer) BUN/Creatinine Ratio Glucose Calcium Total Bilirubin AST ALT Alkaline Phosphatase Troponin I High Sens Total Protein Albumin Globulin Albumin/Globulin Ratio TSH Pending Diagnostic Findings Chest X-Ray 08/24/22 11:14 XR chest 2V PA/lateral HISTORY: Shortness of breath. Chest pain, nonspecific COMPARISON: Chest 03/18/2022. FINDINGS: No pneumothorax. No pleural effusions. The lungs are clear. The heart is normal in size. Scoliosis again noted. IMPRESSION: No significant change compared to the prior study. No acute process. ACT 112: Negative or not required by law. Electronically signed by: Davidson El M.D. 08/24/2022 1:00 PM ECG Additional Comments: Atrial flutter with variable A-V block Nonspecific ST and T wave abnormality Abnormal ECG When compared with ECG of 18-MAR-2022 23:04, Atrial flutter has replaced Sinus rhythm Vent. rate has increased BY 78 BPM Code Status & VTE Plan Code Status Full code VTE Prophylaxis Plan VTE Prophylaxis will be ordered: Yes PG Care Time/CCT Total # of Minutes Spent Total Time Spent with Patient: Total time spent is greater than 50% in coordination of care (as documented) at patient's floor/unit and/or counseling patient: Coding [place] [address] INT INP/OBS CARE 3/75MIN Patient Type Established History Comprehensive Exam Comprehensive Medical Decision Making High Complexity Diagnoses Atrial flutter I48.4 Atrial flutter type: atypical Hypothyroidism E03.9 Chronic pain G89.29 (1) Atrial flutter Atrial flutter type: atypical Qualified Code(s): I48.4 - Atypical atrial flutter
[2022-08-24] MEDS ORDERED: traMADol HCL 50 MG TABLET PO PRN (14:36)
[2022-08-24] MEDS ORDERED: SODIUM CHLORIDE 0.9% 1000ML 1,000 ML IV ONE (14:40)
[2022-08-24] MEDS: POTASSIUM CHLORIDE / WTR 10 MEQ/100 ML PLCT IV SCH ×2 (14:42→15:39)
[2022-08-24 14:44] LABS: Magnesium 2.2 mg/dl (1.7-2.4)
[2022-08-24] MEDS ORDERED: ACETAMINOPHEN 325 MG TAB PO PRN (17:17)
[2022-08-24] MEDS ORDERED: METOPROLOL TARTRATE 1 MG/ML VIAL IV PRN (18:04)
--- NOTE | 2022-08-24 18:14 | Cardiology Consultation ---
Date of Consultation August 24, 2022 Assessment & Plan (1) Atrial flutter with rapid ventricular response: (2) POTS (postural orthostatic tachycardia syndrome): Plan 46-year-old woman with recurrent atrial flutter and POTS admitted with atrial flutter with rapid ventricular spots. Given her tendency to orthostatic hypotension, doubt she will tolerate diltiazem. IV diltiazem drip discontinued, would treat with oral and IV beta- angelika for rate control before performing electrical cardioversion in the morning. Recommend additional 12.5 mg oral metoprolol succinate tonight and again in the morning, upon discharge she should be increased from her usual 12.5 mg metoprolol succinate daily to twice daily dosing. Recommend IV metoprolol tartrate 5 mg every 2 hours PRN HR > 120 bpm (hold for SBP < 90 mmHg). Although she has had difficulty with more than minimal beta-angelika dosing, this is a temporary regimen till such time as she can be evaluated for atrial flutter ablation, which is quite appropriate given her medication intolerance and recurrent atrial flutter. Her [id number] score is 1 (gender), but she would not require routine anticoagulation since she monitors for recurrent atrial flutter. However, given planned cardioversion tomorrow and the possibility of mechanical lag upon return to sinus rhythm, recommended that she be initiated on apixaban 5 mg twice daily for the next couple of weeks. If she does well post cardioversion tomorrow, she could be discharged with follow-up by Dr. Abdalla to arrange probable atrial flutter ablation. History of Present Illness Reason for Consultation: atrial flutter with hx of POTS Requesting Physician: Ilya Feng MD Attending Physician: Ilya Feng MD History of Present Illness 46-year-old woman with history of recurrent atrial flutter and postural orthostasis tachycardia syndrome (PTOS) who was admitted earlier today with tachypalpitations and found to have atrial flutter with rapid ventricular response (138 bpm). She is followed by Dr. Abdalla and has had a number of medication adjustments over the years, these have been difficult due to the limitations that her orthostatic hypotension and tendency to bradycardia place on her ability to tolerate the medication. Most recently, she has been taking 12.5 mg of metoprolol succinate once daily, with an additional dose if she develops tachypalpitations. Dr. Ceballos has discussed with her a low threshold for proceeding to atrial flutter ablation if she were to have frequent atrial flutte r recurrences. She was on fludrocortisone and midodrine in the past for her POTS syndrome, she has been off them for 3 weeks while undergoing evaluation at [facility]. Testing apparently showed intact sympathetic but significantly impaired parasympathetic autonomic innervation. In the past, she would note recurrent atrial flutter after increasing her physical activity (usually a day afterward). She did try a new exercise yesterday and today had recurrent atrial flutter. Previously, her flutter converted back to sinus rhythm without cardioversion. Upon presentation here, she was started on diltiazem drip with good rate control, but with orthostatic symptoms when she sat up (systolic blood pressure dropped to 70 mmHg). At the time of my evaluation, she was comfortable at rest in bed with no somatic complaints. Allergies Allergy/AdvReac Type Severity Reaction Status Date / Time Tetanus Vaccines and Toxoid Allergy Severe Migraine Unverified 07/31/19 13:02 and mouth numbness grass pollen Allergy Verified 12/14/20 12:57 grass pollen-perennial rye, Allergy Verified 12/14/20 12:57 standar codeine AdvReac Intermediate GI UPSET Verified 10/04/18 09:31 Home Medications Medication Instructions Recorded Confirmed Type cholecalciferol (vitamin D3) 25 1,000 unit PO QAM 04/05/18 08/24/22 History mcg (1,000 unit) tablet (Vitamin D3) ibuprofen 200 mg tablet 200 mg PO QID PRN Pain 04/05/18 08/24/22 History multivitamin 1 tab PO QAM 04/05/18 08/24/22 History metoprolol succinate 25 mg 12.5 mg PO QPM 07/31/19 08/24/22 History tablet,extended release 24 hr (Toprol XL) fludrocortisone 0.1 mg tablet 0.1 mg PO DAILY 12/14/20 08/24/22 History midodrine 2.5 mg tablet 2.5 mg PO BID 12/14/20 08/24/22 History duloxetine 30 mg capsule,delayed 60 mg PO HS 03/18/22 08/24/22 History release eszopiclone 3 mg tablet 3 mg PO HS PRN Sleep 03/18/22 08/24/22 History levothyroxine 75 mcg tablet 75 mcg PO QAM 03/18/22 08/24/22 History liothyronine 5 mcg tablet 5 mcg PO QAM 03/18/22 08/24/22 History rizatriptan 5 mg disintegrating 5 mg PO DIRECTED PRN Migraine 03/18/22 08/24/22 History tablet Headache lidocaine HCl 2 % mucosal solution 10 ml PO Q6H PRN mouth pain #100 mL 03/19/22 08/24/22 Rx (Lidocaine Viscous) nirmatrelvir 300 mg (150 mg See Rx Instructions PO .COMPLEX 03/19/22 08/24/22 Rx x2)-ritonavir 100 mg tablet,dose #30 tabs pack(EUA) (Paxlovid) Patient History Medical History Antiphospholipid antibody syndrome Atrial flutter Cervical facet syndrome Cervicalgia CFS (chronic fatigue syndrome) Chronic fatigue syndrome Chronic pain Chronic pain syndrome Fibroadenoma Fibromyalgia Hypothyroidism Insomnia, unspecified Tachycardia Surgical History H/O breast biopsy History of dental surgery Family History Grandmother (Maternal) Breast cancer Grandmother (Paternal) Breast cancer Other No pertinent family history in first degree relatives Denies family history of Ovarian cancer Colorectal cancer Uterine cancer Social History Smoking Status: Never smoker Hx Alcohol Use: Yes (wine a few times a year) Hx Substance Use: Yes (medical marijuana for sleep) Preferred Language: [place]ien Communication Ability: Effective Visual Impairment: No Limitations 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 BP currently normotensive (in bed supine) Pulse 86 bpm and slightly irregular. Skin: no ecchymoses or generalized lesions. HEENT: unremarkable. Neck: no JVD or carotid bruits. Lungs: clear. Cardiac: Slightly irregular rhythm, normal S1 and S2 no murmur or gallop. Abdomen: benign. Extremities: no edema, pulses intact. Neurologic: normal affect and conversation, nonfocal. Results & Data ([facility]) Laboratory Results High-sensitivity troponin negative x2. Normal electrolytes with potassium 3.7, BUN 12, creatinine 0.84. Magnesium 2.2. Diagnostic Findings ECG showed atrial flutter with variable AV block and a rate of [address]-T wave abnormalities related to underlying flutter waves. Compared with 03/18/2022 ECG, atrial flutter has replaced sinus rhythm and the ventricular rate has increased by 78 bpm. Chest x-ray unremarkable. Echocardiogram from 2018 showed normal LV systolic function (EF 50-55%), no significant valvular disease. PG Care Time/CCT Total # of Minutes Spent Total Time Spent with Patient: Total time spent is greater than 50% in coordination of care (as documented) at patient's floor/unit and/or counseling patient: Coding Level of Care Code INP/OBS CONSULT LVL 4, 60 MIN Diagnoses Atrial flutter with rapid ventricular response I48.92 POTS (postural orthostatic tachycardia syndrome) G90.A
[2022-08-24] MEDS: Patient's HEIGHT &/or WEIGHT Needed SCH ×2 (18:38→20:08)
[2022-08-24] MEDS: METOPROLOL SUCC 25MG EXT REL TAB PO SCH (20:23)
[2022-08-24] MEDS: APIXABAN 5 MG TABLET PO SCH (20:24)
[2022-08-24] MEDS ORDERED: APIXABAN 5 MG TABLET PO SCH (21:00)
[2022-08-24] MEDS ORDERED: DULoxetine HCL 60 MG CAP PO SCH (21:00)
[2022-08-25] MEDS: Patient's HEIGHT &/or WEIGHT Needed SCH ×5 (01:38→09:18)
[2022-08-25 05:51] LABS: Hematocrit (blood only) 38.2 % (37.0-47.0); Hemoglobin 13.2 g/dl (12.0-16.0); Mean Corpuscular Hemoglobin 30.6 pg (25.0-34.0); Mean Corpuscular Hgb Conc 34.6 g/dL (32.0-36.0); Mean Corpuscular Volume 88.4 fL (80.0-100.0); Mean Platelet Volume 10.4 fL (9.4-12.4); Platelet Count 191 K/uL (130-400); RDW Coefficient of Variation 12.3 % (11.5-14.5); Red Blood Count 4.32 M/uL (4.20-5.40); White Blood Count 7.98 K/ul (4.8-10.8)
[2022-08-25 06:08] LABS: Albumin Level 3.8 gm/dl (3.4-5.0); Bilirubin,Total 0.4 mg/dl (0.2-1.0); Calcium 8.7 mg/dl (8.5-10.1); Magnesium 2.1 mg/dl (1.7-2.4); Potassium 4.1 mmol/L (3.5-5.1)
[2022-08-25 06:21] LABS: Albumin Globulin Ratio 1.4 (0.9-2); BUN Creatinine Ratio 14.5 (10-20); Creatinine Clr Calc Pharmacy 87.5 ml/min; Est GFR (African American) 109.8 ml/min; Est GFR (Non-African American) 94.7 ml/min; Globulin 2.8 gm/dl (2.5-4.0); Total Protein 6.6 gm/dl (6.0-8.3)
[2022-08-25] MEDS ORDERED: LIOTHYRONINE SODIUM 5 MCG TAB PO SCH (06:30)
[2022-08-25] MEDS ORDERED: LEVOTHYROXINE SODIUM 75 MCG TABLET PO SCH (06:30)
[2022-08-25] MEDS: METOPROLOL SUCC 25MG EXT REL TAB PO SCH (08:50)
[2022-08-25] MEDS: APIXABAN 5 MG TABLET PO SCH (08:50)
--- NOTE | 2022-08-25 11:08 | Electrocardiogram Report ---
Test Reason : Blood Pressure : / mmHG Vent. Rate : 067 BPM Atrial Rate : 067 BPM P-R Int : 140 ms QRS Dur : 090 ms QT Int : 442 ms P-R-T Axes : 077 078 069 degrees QTc Int : 467 ms Normal sinus rhythm Normal ECG When compared with ECG of 24-AUG-2022 11:17, Sinus rhythm has replaced Atrial flutter Vent. rate has decreased BY [address] and T wave abnormality no longer present Confirmed by Tommy Torres ([id number]) on 08/25/2022 11:08:18 AM Referred By: REFERRED SELF Confirmed By:Tommy Torres
--- NOTE | 2022-08-25 11:24 | Cardiology Progress Note ---
Date of Service August 25, 2022 Assessment & Plan (1) Atrial flutter with rapid ventricular response: (2) POTS (postural orthostatic tachycardia syndrome): Plan Spontaneously converted to sinus rhythm, doing well. Recommend increasing metoprolol succinate from 12.5 mg daily to 12.5 mg twice daily upon discharge. Recommend brief anticoagulation with apixaban 5 mg twice daily for the next week. Follow-up with Dr. Abdalla, he will arrange for probable atrial flutter ablation. Admission and Anticipated Discharge Date Admission Date: August 24, 2022 Subjective Rhythm converted spontaneously from atrial flutter to sinus approximately 8 PM last night. She feels well and remains in sinus rhythm BP normotensive, pulse 70 bpm and regular Physical Exam Physical Exam: No distress. Normotensive. Pulse 70 bpm and regular. Skin: no ecchymoses or generalized lesions. HEENT: unremarkable. Neck: no JVD or carotid bruits. Lungs: clear. Cardiac: regular rhythm, normal S1 and S2 no murmur or gallop. Abdomen: benign. Extremities: no edema, pulses intact. Neurologic: normal affect and conversation, nonfocal. Results & Data ([facility]) Vital Signs (Past 12 Hours) Vital Signs Temp Pulse Pulse Pulse Resp BP Pulse Ox 08/25/22 07:45 97.7 F 70 16 109/74 97 08/25/22 02:58 97.9 F 77 18 118/57 L 96 08/25/22 00:26 71 O2 Del Method 08/25/22 07:45 Room Air 08/25/22 02:58 Room Air 08/25/22 00:26 Laboratory Results Normal electrolytes, BUN 11, creatinine 0.76 PG Care Time/CCT Total # of Minutes Spent Total Time Spent with Patient: Total time spent is greater than 50% in coordination of care (as documented) at patient's floor/unit and/or counseling patient: Coding Level of Care Code 77058 SUB INP/OBS CARE 2/35MIN Diagnoses Atrial flutter with rapid ventricular response I48.92 POTS (postural orthostatic tachycardia syndrome) G90.A
--- NOTE | 2022-08-25 11:48 | Discharge Summary ---
Date of Service August 25, 2022 Admission HPI Per Admitting Provider Cindy is a 46 year old female with a PMH of Paroxysmal atrial flutter, hypothyroidism, and fibromyalgia who presented to the [facility] ED on 08/24/22 with a chief complaint of palpitations/chest pain. In the ED the patient was found to be afebrile, hemodynamically stable, stable on RA but in atrial flutter with HR in the 130's-140's. Labs including CBC, CMP, and high sensitivity troponin were WNL. Chest xray was read as "No significant change compared to the prior study. No acute process.". The patient was given 10 mg IV diltiazem and then was placed on a diltiazem drip. Her rate was subsequently controlled but she was noted to still be in flutter on telemetry. At the time of the exam the patient was resting comfortably in bed in no acute distress with her sitting bedside, history was obtained from both. They state that the patient has a long history of cardiac issues. She was last admitted to [facility] in 2017 when she went into atrial flutter. She spontaneously converted back to NSR during that admission and her Carvedilol was switched to Metoprolol succinate 12.5 mg PO HS and prn. She confirms that she is still taking her metoprolol as prescribed. She states that she has had ongoing issues with POTS/orthostatic hypotension and also with symptomatic bradycardia at times. Due to her complex issues Dr. Abdalla had her seen by an Autonomic specialist at the [facility] approximately 3 weeks ago. They state that the specialist there had her hold her midodrine and fludrocortisone and has been having her drink a gallon of water daily with increased sodium intake. They have been having her try to exercise with this new regimen to see how she would respond. She states that she tried some water exercises yesterday. This am when she woke and jeferson out of bed she developed heart palpitations, lightheadedness, and chest discomfort. She took a dose of her 12.5 mg PO metoprolol but it did not resolve her symptoms. Currently lying in bed the patient's HR is controlled in the 70's-90's but she is still in flutter. She states that she is still having some chest discomfort, but it is significantly improved compared to this am. She had covid last March, and was successfully treated with Paxlovid. she states that for two months after her infection she seemed to have more consistent issues with her HR and symptomatic orthostatic hypotension. She denies recent fevers, chills, headache, changes in vision, hearing, taste, and smell, cough, abd pain, nausea ,vomiting, diarrhea, dysuria, hematuria, and recent falls. Please refer to Dr. Martino's attestation for an changes to the treatment plan Principal Diagnosis Atrial flutter with rapid ventricular rate, postural orthostatic tachycardia syndrome Discharge Exam General-alert and oriented x3, no fevers, no chills HEENT-head atraumatic and normocephalic, pupils equal and reactive to light, extraocular muscles intact Neck-no lymphadenopathy or thyromegaly, trachea midline Chest-clear to auscultation percussion. No rales wheezing or rhonchi Cardiac-regular rate and rhythm, normal S1 and S2 Abdomen-normal bowel sounds, nontender, no hepatosplenomegaly Extremities-no cyanosis, clubbing, or edema Neuro-cranial nerves II through XII intact, motor and sensory function within normal limits, strength symmetrical , no focal deficits Psych-normal affect, normal mood Discharge Data Allergies Allergy/AdvReac Type Severity Reaction Status Date / Time Tetanus Vaccines and Toxoid Allergy Severe Migraine Unverified 07/31/19 13:02 and mouth numbness grass pollen Allergy Verified 12/14/20 12:57 grass pollen-perennial rye, Allergy Verified 12/14/20 12:57 standar codeine AdvReac Intermediate GI UPSET Verified 10/04/18 09:31 Consultations 08/24/22 13:48 ED Decision to Admit Stat 08/24/22 13:50 Consult Cardiology Routine 08/24/22 19:06 Consult Anesthesiology Routine Hospital Course (1) Atrial flutter: She is converted spontaneously back to normal sinus rhythm. Metoprolol has been increased to twice daily dosing. She will remain on Eliquis for 1 week. Appreciate cardiology consultation and recommendations. osing.-Admit to the PCU (2) Hypothyroidism: Stable. Continue current thyroid replacement (3) Chronic pain: Treated with Tylenol while hospitalized Plan Discharge to home today, August 25 Total Time Total Time Spent Total Time Spent (In Minutes): 35 minutes Discharge Plan Discharge Items Patient Disposition: Home - Self-Care Reason For Visit: HEART ARRHYTHMIA Discharge Diagnosis: Atrial flutter with rapid ventricular rate, postural orthostatic tachycardia syndrome Activity: Resume your previous activity Non-emergency contact: Primary Care Provider Call non-emergency contact if: your symptoms worsen Follow-up/Referrals: Eduar Monzon MD [Primary Care Provider] - Diet: Heart Healthy Addtl Attending Provider Instructions: Metoprolol dosage has been increased to twice daily dosing. Take Eliquis for 1 week for blood thinner Pending Studies at Discharge: No Stand-Alone Forms: My [facility] [employer], Smoking Cessation Medications and DC Order Prescriptions: New metoprolol succinate 25 mg Tablet Extended Release 24 Hr 12.5 mg PO BID Qty: 60 0RF Continued fludrocortisone 0.1 mg tablet 0.1 mg PO DAILY midodrine 2.5 mg tablet 2.5 mg PO BID Rx Instructions: do not give last dose of day after 6PM or within 4 hrs of bedtime multivitamin Tablet 1 tab PO QAM ibuprofen 200 mg Tablet 200 mg PO QID PRN (Reason: Pain) cholecalciferol (vitamin D3) [Vitamin D3] 1,000 unit Tablet 1,000 unit PO QAM liothyronine 5 mcg tablet 5 mcg PO QAM Rx Instructions: TAKES WITH LEVOTHYROXINE 75 MCG. levothyroxine 75 mcg tablet 75 mcg PO QAM Rx Instructions: TAKES WITH 5 MG LIOTHYRONINE. rizatriptan 5 mg tablet,disintegrating 5 mg PO DIRECTED PRN (Reason: Migraine Headache) duloxetine 30 mg capsule,delayed release(DR/EC) 60 mg PO HS eszopiclone 3 mg tablet 3 mg PO HS PRN (Reason: Sleep) Paxlovid (EUA) 300 mg (150 mg x 2)-100 mg tablets,dose pack See Rx Instructions PO .COMPLEX Qty: 30 0RF Rx Instructions: take TWO 150 mg tablets of nirmatrelvir with ONE 100 mg tablet of ritonavir twice daily for 5 days lidocaine HCl [Lidocaine Viscous] 2 % solution 10 ml PO Q6H PRN (Reason: mouth pain) Qty: 100 0RF Discontinued metoprolol succinate [Toprol XL] 25 mg tablet extended release 24 hr 12.5 mg PO QPM Discharge Orders: Discharge Order (Routine); Ordered 08/25/22 Ordered By: Poli Cat Admission Data Admit Date/Time: 08/24/22 13:22 Attending Provider: Poli Cat Admit Provider: Ilya Feng Primary Care Provider: Eduar Monzon Other Providers: Ilya Feng ; Tommy Torres Coding Level of Care Code HOSP INP/OBS DISCH >30 MIN Diagnoses Atrial flutter I48.4 Atrial flutter type: atypical Hypothyroidism E03.9 Chronic pain G89.29
--- NOTE | 2022-08-25 12:31 | Discharge Summary ---
Date of Service August 25, 2022 Admission HPI Per Admitting Provider Cindy is a 46 year old female with a PMH of Paroxysmal atrial flutter, hypothyroidism, and fibromyalgia who presented to the [facility] ED on 08/24/22 with a chief complaint of palpitations/chest pain. In the ED the patient was found to be afebrile, hemodynamically stable, stable on RA but in atrial flutter with HR in the 130's-140's. Labs including CBC, CMP, and high sensitivity troponin were WNL. Chest xray was read as "No significant change compared to the prior study. No acute process.". The patient was given 10 mg IV diltiazem and then was placed on a diltiazem drip. Her rate was subsequently controlled but she was noted to still be in flutter on telemetry. At the time of the exam the patient was resting comfortably in bed in no acute distress with her sitting bedside, history was obtained from both. They state that the patient has a long history of cardiac issues. She was last admitted to [facility] in 2017 when she went into atrial flutter. She spontaneously converted back to NSR during that admission and her Carvedilol was switched to Metoprolol succinate 12.5 mg PO HS and prn. She confirms that she is still taking her metoprolol as prescribed. She states that she has had ongoing issues with POTS/orthostatic hypotension and also with symptomatic bradycardia at times. Due to her complex issues Dr. Abdalla had her seen by an Autonomic specialist at the [facility] approximately 3 weeks ago. They state that the specialist there had her hold her midodrine and fludrocortisone and has been having her drink a gallon of water daily with increased sodium intake. They have been having her try to exercise with this new regimen to see how she would respond. She states that she tried some water exercises yesterday. This am when she woke and jeferson out of bed she developed heart palpitations, lightheadedness, and chest discomfort. She took a dose of her 12.5 mg PO metoprolol but it did not resolve her symptoms. Currently lying in bed the patient's HR is controlled in the 70's-90's but she is still in flutter. She states that she is still having some chest discomfort, but it is significantly improved compared to this am. She had covid last March, and was successfully treated with Paxlovid. she states that for two months after her infection she seemed to have more consistent issues with her HR and symptomatic orthostatic hypotension. She denies recent fevers, chills, headache, changes in vision, hearing, taste, and smell, cough, abd pain, nausea ,vomiting, diarrhea, dysuria, hematuria, and recent falls. Please refer to Dr. Martino's attestation for an changes to the treatment plan Principal Diagnosis Atrial flutter with rapid ventricular rate, postural orthostatic tachycardia syndrome Discharge Data Allergies Allergy/AdvReac Type Severity Reaction Status Date / Time Tetanus Vaccines and Toxoid Allergy Severe Migraine Unverified 07/31/19 13:02 and mouth numbness grass pollen Allergy Verified 12/14/20 12:57 grass pollen-perennial rye, Allergy Verified 12/14/20 12:57 standar codeine AdvReac Intermediate GI UPSET Verified 10/04/18 09:31 Consultations 08/24/22 13:48 ED Decision to Admit Stat 08/24/22 13:50 Consult Cardiology Routine 08/24/22 19:06 Consult Anesthesiology Routine Total Time Total Time Spent Total Time Spent (In Minutes): 35 minutes Discharge Plan Discharge Items Patient Disposition: Home - Self-Care Reason For Visit: HEART ARRHYTHMIA Discharge Diagnosis: Atrial flutter with rapid ventricular rate, postural orthostatic tachycardia syndrome Activity: Resume your previous activity Non-emergency contact: Primary Care Provider Call non-emergency contact if: your symptoms worsen Follow-up/Referrals: oJsep Segura MD [Resident] - 08/30/22 8:05 am (appointment with Josep Segura at [address] [place] [address]) Diet: Heart Healthy Addtl Attending Provider Instructions: Metoprolol dosage has been increased to twice daily dosing. Take Eliquis for 1 week for blood thinner Pending Studies at Discharge: No Stand-Alone Forms: My [employer], Smoking Cessation Medications and DC Order Prescriptions: New metoprolol succinate 25 mg Tablet Extended Release 24 Hr 12.5 mg PO BID Qty: 60 0RF Eliquis 5 mg tablet 5 mg PO BID Qty: 14 0RF Continued fludrocortisone 0.1 mg tablet 0.1 mg PO DAILY midodrine 2.5 mg tablet 2.5 mg PO BID Rx Instructions: do not give last dose of day after 6PM or within 4 hrs of bedtime multivitamin Tablet 1 tab PO QAM ibuprofen 200 mg Tablet 200 mg PO QID PRN (Reason: Pain) cholecalciferol (vitamin D3) [Vitamin D3] 1,000 unit Tablet 1,000 unit PO QAM liothyronine 5 mcg tablet 5 mcg PO QAM Rx Instructions: TAKES WITH LEVOTHYROXINE 75 MCG. levothyroxine 75 mcg tablet 75 mcg PO QAM Rx Instructions: TAKES WITH 5 MG LIOTHYRONINE. rizatriptan 5 mg tablet,disintegrating 5 mg PO DIRECTED PRN (Reason: Migraine Headache) duloxetine 30 mg capsule,delayed release(DR/EC) 60 mg PO HS eszopiclone 3 mg tablet 3 mg PO HS PRN (Reason: Sleep) Paxlovid (EUA) 300 mg (150 mg x 2)-100 mg tablets,dose pack See Rx Instructions PO .COMPLEX Qty: 30 0RF Rx Instructions: take TWO 150 mg tablets of nirmatrelvir with ONE 100 mg tablet of ritonavir twice daily for 5 days lidocaine HCl [Lidocaine Viscous] 2 % solution 10 ml PO Q6H PRN (Reason: mouth pain) Qty: 100 0RF Discontinued metoprolol succinate [Toprol XL] 25 mg tablet extended release 24 hr 12.5 mg PO QPM Discharge Orders: Discharge Order (Routine); Ordered 08/25/22 Ordered By: Poli Cat Admission Data Admit Date/Time: 08/24/22 13:22 Attending Provider: Poli Cat Admit Provider: Ilya Feng Primary Care Provider: Eduar Monzon Other Providers: Ilya Feng ; Tommy Torres Other Interventions: Discharge Summary Assessment (RN) Last Done: 08/25/22 12:23 Coding Level of Care Code HOSP INP/OBS DISCH >30 MIN
== END 2022-08-25 12:45 | disposition home or self-care (01) | DRG 310 ==
LOC: ED 10:59 → SUATTDRO 13:22 → 2S 13:22